=== PATIENT | female | born 1970 | race Caucasian/White ===

== ENCOUNTER → 2021-03-06 | Outpatient (CLI) | payer BC ==
[~2021-03-06] MED LIST: IBUPROFEN600 MG PO; MULTIVITAMINS1 EAC1 PO
== END ==
LOC: KOH-I 08:00
DX: S99.921A Unspecified injury of right foot, initial encounter (principal); M79.671 Pain in right foot
CPT/HCPCS: 73718

== ENCOUNTER → 2021-09-09 | Outpatient (CLI) | payer BC ==
[~2021-09-09] VITALS: Ht 165.1 cm; Wt 70.3 kg
== END ==
LOC: OPSV 14:00
DX: D64.9 Anemia, unspecified (principal); D50.9 Iron deficiency anemia, unspecified; K90.9 Intestinal malabsorption, unspecified
CPT/HCPCS: 96365; J1756

== ENCOUNTER → 2021-09-16 | Outpatient (CLI) | payer BC | LOC: OPSV 13:39 | DX: D64.9 Anemia, unspecified (principal); D50.9 Iron deficiency anemia, unspecified; K90.9 Intestinal malabsorption, unspecified | CPT/HCPCS: 96365; J1756 ==

== ENCOUNTER → 2021-09-23 | Outpatient (CLI) | payer BC ==
[~2021-09-23] VITALS: Ht 165.1 cm; Wt 70.3 kg
== END ==
LOC: OPSV 14:00
DX: D50.9 Iron deficiency anemia, unspecified (principal); K90.9 Intestinal malabsorption, unspecified; D64.9 Anemia, unspecified
CPT/HCPCS: 96365; J1756

== ENCOUNTER → 2021-10-21 | Outpatient (CLI) | payer BC | LOC: OPSV 12:00 | DX: D50.9 Iron deficiency anemia, unspecified (principal); K90.9 Intestinal malabsorption, unspecified | CPT/HCPCS: 96365; J1756 ==

== ENCOUNTER → 2021-11-13 | Outpatient (CLI) | payer BC | LOC: MAMO 09:46 | DX: Z12.31 Encounter for screening mammogram for malignant neoplasm of breast (principal) | CPT/HCPCS: 77063; 77067 ==

== ENCOUNTER → 2021-11-18 | Outpatient (CLI) | payer BC ==
[~2021-11-18] VITALS: Ht 165.1 cm; Wt 74.4 kg
== END ==
LOC: OPSV 12:44
DX: D64.9 Anemia, unspecified (principal); D50.9 Iron deficiency anemia, unspecified; K90.9 Intestinal malabsorption, unspecified
CPT/HCPCS: 96365; J1756

== ENCOUNTER → 2022-03-11 | Outpatient (CLI) | payer BC ==
[~2022-03-11] VITALS: Ht 165.1 cm; Wt 74.4 kg
== END ==
LOC: OPSV 02-26 11:00
DX: D50.0 Iron deficiency anemia secondary to blood loss (chronic) (principal)
CPT/HCPCS: 96365; J1756

== ENCOUNTER → 2022-03-26 | Outpatient (CLI) | payer BC | LOC: OPSV 03-25 14:00 | DX: D50.0 Iron deficiency anemia secondary to blood loss (chronic) (principal) | CPT/HCPCS: 96365; J1756 ==

== ENCOUNTER → 2022-04-09 | Outpatient (CLI) | payer BC | LOC: OPSV 08:00 | DX: D50.0 Iron deficiency anemia secondary to blood loss (chronic) (principal) | CPT/HCPCS: 96365; J1756 ==